=== PATIENT | female | born 1930 | race Caucasian/White ===

== ENCOUNTER 2017-03-16 19:58 | Emergency (ER) | payer MEDICARE ==
[~2017-03-16] VITALS: Ht 160 cm; Wt 56.7 kg
--- NOTE | ~2017-03-16 | CT52 ---
[facility] A Service of [facility] RADIOLOGY TEXT RESULTS PATIENT: JASMYN JON LOCATION: [facility] : [birth year] UNIT #: [id number] AGE: [address]: Camron Wise MD SEX: F ORDER DR: [id number] [facility] [address] [place], [place] [address] [id number] E MR#: [id number] Acc #: [id number] NAME: JASMYN JON : 1930 SEX: F STUDY DATE/TIME: 03/16/2017 22:31 UNIT: [facility] ROOM: STUDY DESCRIPTION: CT Cervical Spine Wo Cont Attending Physician: Camron Wise M.D. Ordering Physician: Camron Wise M.D. Primary Care Physician: Christiano Smith M.D. MEDICAL IMAGING REPORT This report is preliminary unless electronic signature is present EXAM CT cervical spine without contrast. INDICATIONS Neck pain after a fall this morning. PROCEDURE Unenhanced CT of the cervical spine. This CT exam was performed with one or more of the following radiation dose reduction techniques: Automatic exposure control, adjustment of mA and/or kV according to patient size, and iterative reconstruction. COMPARISON None. 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 The cervical bodies maintain normal height. Approximately 4 mm of anterolisthesis C3 on C4 with rather acute kyphotic angulation at this level. Craniocervical junction and the dens are intact. No fracture. Varying degrees of central canal narrowing. Central canal narrowing is most significant at C5-C6 related to a prominent posterior osteophyte. There is multilevel significant neural foraminal narrowing. IMPRESSION 1. No acute findings. 2. Multilevel degenerative change as detailed above. Dictated by... Aristeo Muller M.D. THIS IS AN ELECTRONICALLY VERIFIED REPORT Aristeo Muller M.D. at 03/21/2017 8:57 AM [facility] A Service of [facility] RADIOLOGY TEXT RESULTS PATIENT: JASMYN JON LOCATION: [facility] : [birth year] UNIT #: [id number] AGE: [address]: Camron Wise MD SEX: F ORDER DR: REBA/emmanuelle TD: 03/17/2017 09:54 JOB #: [id number] MEDICAL IMAGING REPORT Page 1 of 1 COPY
--- NOTE | ~2017-03-16 | CT71 ---
[facility] A Service of [facility] RADIOLOGY TEXT RESULTS PATIENT: JAMSYN JON LOCATION: [facility] : [birth year] UNIT #: [id number] AGE: [address]: Camron Wise MD SEX: F ORDER DR: [id number] [facility] [address] [place], [place] [address] [id number] E MR#: [id number] Acc #: [id number] NAME: JASMYN JON : 1930 SEX: F STUDY DATE/TIME: 03/16/2017 22:26 UNIT: [facility] ROOM: STUDY DESCRIPTION: CT Head Wo Contrast Attending Physician: Camron Wise M.D. Ordering Physician: Camron Wise M.D. Primary Care Physician: Christiano Smith M.D. MEDICAL IMAGING REPORT This report is preliminary unless electronic signature is present EXAM CT head without contrast INDICATION Head and face pain and bruising after a fall this morning. PROCEDURE Unenhanced CT of the head. This CT examination was performed with one or more of the following radiation dose reduction techniques: automatic exposure control, adjustment of mA and/or kV according to patient size, and iterative reconstruction. COMPARISON None. FINDINGS No acute intracranial hemorrhage, abnormal mass effect, extraaxial fluid collection or hydrocephalus. Moderately large right frontal and right periorbital hematoma. Right globe is intact. No underlying calvarial fracture. IMPRESSION Moderately large inferior right frontal and right periorbital soft tissue hematoma. There is no acute intracranial finding or underlying calvarial fracture. Dictated by... Aristeo Muller M.D. THIS IS AN ELECTRONICALLY VERIFIED REPORT Aristeo Muller M.D. at 03/21/2017 8:57 AM EED/mjs [facility] A Service of [facility] RADIOLOGY TEXT RESULTS PATIENT: JASMYN JON LOCATION: [facility] : [birth year] UNIT #: [id number] AGE: [address]: Camron Wise MD SEX: F ORDER DR: TD: 03/17/2017 10:14 JOB #: [id number] MEDICAL IMAGING REPORT Page 1 of 1 COPY
--- NOTE | ~2017-03-16 | CT101 ---
[facility] A Service of [facility] RADIOLOGY TEXT RESULTS PATIENT: JASMYN JON LOCATION: [facility] : [birth year] UNIT #: [id number] AGE: [address]: Camron Wise MD SEX: F ORDER DR: [id number] [facility] [address] [place], [place] [address] [id number] E MR#: [id number] Acc #: [id number] NAME: JASMYN JON. : 1930 SEX: F STUDY DATE/TIME: 03/16/2017 22:28 UNIT: [facility] ROOM: STUDY DESCRIPTION: CT Maxillofacial Area Wo Cont Attending Physician: Camron Wise M.D. Ordering Physician: Camron Wise M.D. Primary Care Physician: Christiano Smith M.D. MEDICAL IMAGING REPORT This report is preliminary unless electronic signature is present EXAM CT facial bones without contrast. INDICATIONS Right-sided face pain and swelling after fall this morning. PROCEDURE Unenhanced CT of the facial bones. This CT exam was performed with one or more of the following radiation dose reduction techniques: automatic exposure control, adjustment of mA and/or kV according to patient size, and iterative reconstruction. COMPARISON None FINDINGS Refer to separately dictated head CT for intracranial findings. There is a moderately large inferior right frontal and right periorbital soft tissue hematoma. The right globe is intact. There is no acute facial bone fracture. The paranasal sinuses and mastoid air cells are clear. IMPRESSION 1. No acute facial bone fracture. 2. Moderately large inferior right frontal and right periorbital soft tissue hematoma. Dictated by... Aristeo Muller M.D. THIS IS AN ELECTRONICALLY VERIFIED REPORT Aristeo Muller M.D. at 03/21/2017 8:57 AM EED/gz [facility] A Service of [facility] RADIOLOGY TEXT RESULTS PATIENT: JASMYN JON LOCATION: [facility] : [birth year] UNIT #: [id number] AGE: [address]: Camron Wise MD SEX: F ORDER DR: TD: 03/17/2017 09:59 JOB #: [id number] MEDICAL IMAGING REPORT Page 1 of 1 COPY
== END 2017-03-16 23:35 | disposition home or self-care (01) ==
LOC: CED 19:58
DX: S00.83XA Contusion of other part of head, initial encounter (principal); Z23 Encounter for immunization; W01.0XXA Fall on same level from slipping, tripping and stumbling without subsequent striking against object, initial encounter
CPT/HCPCS: 70450; 70486; 72125; 90471; 90715; 99283